=== PATIENT | female | born 1985 | race Caucasian/White ===

== ENCOUNTER 2017-09-15 20:17 | Emergency (ER) | payer SELFPAY ==
[~2017-09-15] VITALS: Ht 167.6 cm; Wt 74.4 kg
[2017-09-15 20:29] VITALS: Ht 167.6 cm; Wt 74.4 kg
[2017-09-15 22:12] VITALS: BP 127/77
== END 2017-09-15 22:12 | disposition home or self-care (01) ==
LOC: ED 20:17
DX: S00.83XA Contusion of other part of head, initial encounter (principal); F10.129 Alcohol abuse with intoxication, unspecified; W01.0XXA Fall on same level from slipping, tripping and stumbling without subsequent striking against object, initial encounter; Y93.89 Activity, other specified; Y92.89 Other specified places as the place of occurrence of the external cause; Y99.8 Other external cause status
CPT/HCPCS: Q0162